=== PATIENT | male | born 1945 | race African-American/Black ===

== ENCOUNTER 2022-03-25 12:58 | Inpatient (IN) | payer MEDICARE, OTHER ==
[~2022-03-25] VITALS: Ht 170.2 cm; Wt 86.0 kg
[2022-03-25] MEDS ORDERED: PHENYLEPHRINE IV 250 ML IV ONE (13:45)
[2022-03-25] MEDS ORDERED: NITROGLYCERIN 0.4 MG SL TAB SL PRN (14:15)
[2022-03-25] MEDS ORDERED: MORPHINE SULFATE INJ 2 MG/ml SYRG IV PRN ×2 (14:15→22:30)
[2022-03-25] MEDS ORDERED: SODIUM CHLORIDE 0.9% 1,000 ML IV SCH (14:15)
[2022-03-25] MEDS ORDERED: FUROSEMIDE 20 MG/2 ML VIAL IV ONE (15:00)
[2022-03-25] MEDS ORDERED: ALBUMIN 25% 100 ML IV ONE (15:00)
[2022-03-25 15:18] LABS: Basophils # (auto) 0 10 ^3/uL (0-0.2); Eosinophils # (auto) 0 10 ^3/uL (0-0.8); Eosinophils % (auto) 0.1 % (0.0-7.0); Nucleated Red Blood Cells % 2.4 %; White Blood Cell 6.4 10^3/uL (4.4-10.8)
[2022-03-25 15:21] LABS: Basophils % (auto) 0.2 % (0.0-2.0); Hematocrit 24.9 % (41.0-53.0); Hemoglobin 7.7 g/dL (13.5-17.5); Lymphocytes # (auto) 0.6 10 ^3/uL (0.4-5.4); Lymphocytes % (auto) 9.4 % (10.0-50.0); Mean Corpuscular Volume 112.9 fL (80.0-100.0); Monocytes # (auto) 0.7 10 ^3/uL (0-1.3); Monocytes % (auto) 10.3 % (0.0-12.0); Neutrophils # (auto) 5.1 10 ^3/uL (1.6-8.6); Red Blood Cells 2.21 10^6/uL (4.5-5.90)
[2022-03-25 15:22] LABS: Red Cell Distribution Width 22.8 % (11.8-14.3)
[2022-03-25 15:34] LABS: INR 1.06 (0.9-1.15); Partial Thromboplastin Time 23.1 sec (24.6-33.4)
[2022-03-25 15:40] LABS: Albumin 3.1 g/dL (3.4-5.0); BUN/Creatinine Ratio 28.3; Calcium 8.7 mg/dL (8.5-10.1); Potassium 3.2 mmol/L (3.5-5.1)
[2022-03-25 15:43] LABS: Bilirubin, Total 0.9 mg/dL (0.2-1.0); Total Protein 5.8 g/dL (6.4-8.2)
[2022-03-25] MEDS ORDERED: PANTOPRAZOLE 40 MG/10 ML VIAL INJ IV ONE (16:00)
[2022-03-25] MEDS ORDERED: ASPirin 81 mg TAB PO ONE (16:00)
[2022-03-25 16:03] LABS: Lactic Acid w/Reflex 3.3 mmol/L (0.4-2.0)
[2022-03-25 16:07] LABS: % Iron Saturation 15.7 % (20-55)
[2022-03-25 16:11] LABS: Cholesterol 147 mg/dL (< 200); Triglycerides 118 mg/dL (< 150)
[2022-03-25 16:13] LABS: HDL Cholesterol 55 mg/dL (40-59); LDL Cholesterol 77 mg/dL (< 100)
[2022-03-25] MEDS ORDERED: POTASSIUM EFFERVESENT TAB 25 MEQ PO ONE (16:30)
[2022-03-25] MEDS ORDERED: HEPARIN SODIUM (PORCINE) 5000 UNITS/ML 1ML VIAL IV ONE (17:15)
[2022-03-25] MEDS ORDERED: HEPARIN DRIP/D5W 100UNITS/ML 250 ML IV SCH (17:15)
[2022-03-25] MEDS ORDERED: IOHEXOL 350 MG/ML 100ML IJ ONE (17:49)
[2022-03-25 18:09] LABS: Eosinophils # (auto) 0 10 ^3/uL (0-0.8); Mean Corpuscular Volume 110.2 fL (80.0-100.0); Monocytes # (auto) 0.6 10 ^3/uL (0-1.3); White Blood Cell 5.7 10^3/uL (4.4-10.8)
[2022-03-25 18:10] LABS: Basophils # (auto) 0 10 ^3/uL (0-0.2); Basophils % (auto) 0.4 % (0.0-2.0); Eosinophils % (auto) 0.1 % (0.0-7.0); Hematocrit 23.2 % (41.0-53.0); Hemoglobin 7.4 g/dL (13.5-17.5); Lymphocytes # (auto) 0.7 10 ^3/uL (0.4-5.4); Lymphocytes % (auto) 12.5 % (10.0-50.0); Mean Corpuscular Hemoglobin 35.1 pg (28.0-32.0); Mean Corpuscular Hgb Conc. 31.8 g/dL (32.0-36.0); Neutrophils # (auto) 4.4 10 ^3/uL (1.6-8.6); Nucleated Red Blood Cells % 2.1 %; Red Blood Cells 2.11 10^6/uL (4.5-5.90)
[2022-03-25 18:14] LABS: Red Cell Distribution Width 22.6 % (11.8-14.3)
[2022-03-25] MEDS: PHENYLEPHRINE IV 250 ML IV SCH ×3 (18:17→22:32)
[2022-03-25] MEDS ORDERED: NITROGLYCERIN 0.4MG/HR TOPICAL PATCH TD ONE (18:45)
[2022-03-25 19:21] LABS: INR 1.08 (0.9-1.15); Partial Thromboplastin Time 22.2 sec (24.6-33.4)
[2022-03-25] MEDS ORDERED: NOREPINEPHRINE 8 MG/250ML KIT 250 ML IV SCH (20:45)
[2022-03-25] MEDS ORDERED: ENOXAPARIN SOD 100 MG/1 ML SYRINGE SC SCH (22:00)
[2022-03-25] MEDS ORDERED: ONDANSETRON HCL 4 MG/2 ML VIAL IV ONE (23:00)
[2022-03-25] MEDS ORDERED: LORazepam 2MG/ML-1ML VIAL IV PRN (23:15)
[2022-03-25 23:48] LABS: Folate (Folic Acid) 16.17 ng/mL (5.38-24)
[2022-03-26] MEDS ORDERED: KETOROLAC TROMETH 30 MG/ML 1ML VIAL IV ONE (00:30)
[2022-03-26] MEDS ORDERED: SODIUM CHLORIDE 0.9% 250 ML IV ONE (00:30)
[2022-03-26] MEDS ORDERED: SODIUM CHLORIDE 0.9% 1,000 ML IV SCH (00:30)
[2022-03-26] MEDS: PHENYLEPHRINE IV 250 ML IV SCH ×3 (00:42→05:40)
[2022-03-26 01:28] LABS: INR 1.12 (0.9-1.15)
[2022-03-26 01:32] LABS: Urine Bacteria NONE SEEN /hpf (None Seen); Urine Blood 1+ /uL (Negative); Urine Hyaline Cast MANY /lpf (0 - 2); Urine Mucus FEW (None Seen); Urine Specific Gravity 1.027 (1.001-1.035); Urine WBC 125 /hpf (0 - 3)
[2022-03-26 01:42] LABS: Partial Thromboplastin Time 87.5 sec (24.6-33.4)
[2022-03-26] MEDS: HEPARIN DRIP/D5W 100UNITS/ML 250 ML IV SCH (02:00)
[2022-03-26 02:47] VITALS: BP 104/64
[2022-03-26 02:55] VITALS: BP 104/64
[2022-03-26] MEDS: ALBUTEROL SULF 2.5 MG/0.5ML(0.5%) NEB SOLN NEB PRN ×2 (02:58→07:09)
[2022-03-26 03:51] VITALS: BP 97/59
[2022-03-26] MEDS ORDERED: VASOPRESSIN 20 UNIT/ML ONE (05:44)
[2022-03-26] MEDS ORDERED: VASOPRESSIN 50 UNITS in D5W 5% 247.5 ML IV SCH (05:45)
[2022-03-26] MEDS ORDERED: SODIUM CHLORIDE 0.9 % NEB SOLN 3ML NEB ONE (06:34)
[2022-03-26 06:51] LABS: Basophils # (auto) 0 10 ^3/uL (0-0.2); Eosinophils # (auto) 0 10 ^3/uL (0-0.8); Eosinophils % (auto) 0.1 % (0.0-7.0); White Blood Cell 8.2 10^3/uL (4.4-10.8)
[2022-03-26 06:54] LABS: Basophils % (auto) 0.2 % (0.0-2.0); Hematocrit 28.1 % (41.0-53.0); Hemoglobin 8.4 g/dL (13.5-17.5); Lymphocytes # (auto) 0.9 10 ^3/uL (0.4-5.4); Lymphocytes % (auto) 11.2 % (10.0-50.0); Mean Corpuscular Hgb Conc. 29.8 g/dL (32.0-36.0); Mean Corpuscular Volume 120.7 fL (80.0-100.0); Monocytes % (auto) 12.4 % (0.0-12.0); Neutrophils # (auto) 6.3 10 ^3/uL (1.6-8.6); Neutrophils % (auto) 76.1 % (37.0-80.0); Red Blood Cells 2.33 10^6/uL (4.5-5.90)
[2022-03-26 06:56] LABS: Nucleated Red Blood Cells % 12.5 %; Red Cell Distribution Width 23.2 % (11.8-14.3)
[2022-03-26 07:15] VITALS: BP 86/58
[2022-03-26] MEDS ORDERED: NITROGLYCERIN 0.4MG/HR TOPICAL PATCH TD SCH (10:00)
[2022-03-26] MEDS ORDERED: ASPirin 81 mg TAB PO SCH (10:00)
[2022-03-26] MEDS ORDERED: FUROSEMIDE 20 MG/2 ML VIAL IV SCH (10:00)
[2022-03-26] MEDS ORDERED: PANTOPRAZOLE 40 MG/10 ML VIAL INJ IV SCH (10:00)
[2022-03-26] MEDS ORDERED: ENOXAPARIN SOD 40 MG/0.4 ML SYRINGE SC SCH (10:00)
== END 2022-03-26 07:47 | DRG 871 ==
LOC: ER 12:58 → EDBD 12:58 → OVERFLOW 14:09
PROVIDERS: ADMIT Nurse Practitioner Family; ATTEND Family Medicine
PROC: 05HA33Z Insertion of Infusion Device into Left Brachial Vein, Percutaneous Approach (ICD-10-PCS; principal; 2022-03-25)
PROC: B54NZZA Ultrasonography of Left Upper Extremity Veins, Guidance (ICD-10-PCS; 2022-03-25)
DX: A41.9 Sepsis, unspecified organism (principal); I21.4 Non-ST elevation (NSTEMI) myocardial infarction; I50.43 Acute on chronic combined systolic (congestive) and diastolic (congestive) heart failure; N39.0 Urinary tract infection, site not specified; I82.411 Acute embolism and thrombosis of right femoral vein; Z66 Do not resuscitate; I95.9 Hypotension, unspecified; I48.91 Unspecified atrial fibrillation; Z20.822 Contact with and (suspected) exposure to COVID-19; D69.6 Thrombocytopenia, unspecified; D53.9 Nutritional anemia, unspecified; E78.5 Hyperlipidemia, unspecified; D63.8 Anemia in other chronic diseases classified elsewhere; E78.00 Pure hypercholesterolemia, unspecified; I11.0 Hypertensive heart disease with heart failure; G62.9 Polyneuropathy, unspecified; I25.10 Atherosclerotic heart disease of native coronary artery without angina pectoris; Z88.8 Allergy status to other drugs, medicaments and biological substances; Z88.0 Allergy status to penicillin; I25.2 Old myocardial infarction; Z82.49 Family history of ischemic heart disease and other diseases of the circulatory system; Z85.46 Personal history of malignant neoplasm of prostate; Z95.1 Presence of aortocoronary bypass graft
CPT/HCPCS: 36415; 36430; 36600; 71045; 80053; 80061; 81001; 82607; 82746; 82805; 82962; 83036; 83540; 83550; 83605; 83880; 84155; 84165; 84443; 84484; 85025; 85379; 85610; 85730; 86850; 86900; 86901; 87040; 87077; 87086; 87186; 87426; 93306; 93886; 93970; 94640; 94660; 96365; 96375; 99291; C9113; G0378; J1885; J2405; J7060; P9047